=== PATIENT | female | born 1980 | race Two or more races ===

== ENCOUNTER 2020-02-15 11:22 | Outpatient (CLI) | payer OTHER ==
[~2020-02-15 11:22] MED LIST: PRENATAL CAPLE1 EACH PO
== END 2020-02-15 11:35 | disposition home or self-care (01) ==
LOC: RAD 11:22
PROVIDERS: ATTEND Specialist
DX: N20.1 Calculus of ureter (principal)

== ENCOUNTER 2020-02-22 09:35 | Outpatient (CLI) | payer OTHER | END 2020-02-22 09:41 | disposition home or self-care (01) | LOC: RAD 09:35 | PROVIDERS: ATTEND Urology | DX: N20.1 Calculus of ureter (principal) ==

== ENCOUNTER 2020-03-26 10:00 | Outpatient (CLI) | payer OTHER | END 2020-03-26 18:00 | disposition home or self-care (01) | LOC: LAB 10:00 | PROVIDERS: ATTEND Urology | DX: N20.1 Calculus of ureter (principal) ==

== ENCOUNTER → 2020-04-02 09:48 | Outpatient (CLI) | payer OTHER | END | disposition home or self-care (01) | LOC: LAB 09:48 | PROVIDERS: ATTEND Urology | DX: N20.1 Calculus of ureter (principal) ==